=== PATIENT | male | born 1955 | race Caucasian/White ===

== ENCOUNTER 2021-06-04 12:42 | Emergency (ER) | payer OTHER ==
[~2021-06-04] VITALS: Ht 167.6 cm; Wt 65.8 kg
[2021-06-04] MEDS ORDERED: NAPROSYN500 MG PO (16:05)
[2021-06-04 16:19] VITALS: BP 149/81
== END 2021-06-04 16:19 | disposition home or self-care (01) ==
LOC: ER 12:42
DX: S20.221A Contusion of right back wall of thorax, initial encounter (principal); E11.9 Type 2 diabetes mellitus without complications; E78.5 Hyperlipidemia, unspecified; F17.210 Nicotine dependence, cigarettes, uncomplicated; X58.XXXA Exposure to other specified factors, initial encounter; Y93.89 Activity, other specified; Y92.89 Other specified places as the place of occurrence of the external cause; Y99.8 Other external cause status